=== PATIENT | female | born 1995 | race Caucasian/White ===

== ENCOUNTER → 2019-12-29 | Outpatient (CLI) | payer BC | END | disposition home or self-care (01) | LOC: LAB 20:20 | PROVIDERS: Nurse Practitioner Family | DX: R53.81 Other malaise (principal); W57.XXXD Bitten or stung by nonvenomous insect and other nonvenomous arthropods, subsequent encounter ==

== ENCOUNTER → 2022-09-18 | Outpatient (CLI) | payer BC | END | disposition home or self-care (01) | LOC: CT 10:00 | PROVIDERS: ATTEND Specialist | DX: J34.2 Deviated nasal septum (principal); J01.90 Acute sinusitis, unspecified ==